=== PATIENT | female | born 1945 | race Caucasian/White ===

== ENCOUNTER → 2022-04-29 | Outpatient (CLI) | payer MEDICARE ==
[~2022-04-29] MED LIST: ACET650T61 PO; ATOR40TA75 PO; BIOT1CAP2 PO; CARV6.25 PO; ECOT81TA5 PO; FLUO40CA PO; FURO20TA2 PO; LEVO25TA5 PO; LISI2.5T9 PO; MM S100C PO; OCUV1CHW PO; SUPE5000 PO; VITA500T41 PO
== END ==
LOC: M LABSMTC 09:37
PROVIDERS: ATTEND Anesthesiology
DX: Z01.818 Encounter for other preprocedural examination (principal); Z11.52 Encounter for screening for COVID-19

== ENCOUNTER 2022-05-04 09:17 | Day surgery (SDC) | payer MEDICARE ==
[~2022-05-04] VITALS: Ht 157.5 cm; Wt 56.2 kg
[~2022-05-04 09:17] MED LIST changes: +CEFUROXIME 1MG/0.1ML INTRACAMERAL INJ As Ordered ONE; +DUOVISC (0.50ML VISCOAT/0.85ML PROVISC) OPHTH KIT As Ordered ONE; +LIDOCAINE 1% SDV 5ML VIAL As Ordered ONE; +MIDAZOLAM INJ 2MG/2ML VIAL (J2250 PER 1MG) As Ordered ONE; +POVIDONE-IODINE 5% OPHTH PREP SOL 30ML As Ordered ONE
[2022-05-04] MEDS: PHENYLEPHRINE 2.5% OPHTH SOL 2ML OD SCH ×3 (10:39→10:48)
[2022-05-04] MEDS: TROPICAMIDE 1% OPHTH SOLN 2ML OD SCH ×3 (10:39→10:48)
[2022-05-04] MEDS: CYCLOPENTOLATE 1% OPHTH SOLN 2 ML BTL OD SCH ×3 (10:39→10:48)
[2022-05-04 11:46] VITALS: BP 141/64
[2022-05-04] MEDS ORDERED: LIDOCAINE 3.5 % 1ML OPHTH TOPICAL GEL OU ONE (11:50)
[2022-05-04] MEDS ORDERED: OFLOXACIN 0.3 % (OCUFLOX) OPTH SOL 5ML OD ONE (11:50)
[2022-05-04] MEDS ORDERED: PHENYLEPHRINE HCL 10 % OPHTH. SOL 5ML OD PRN (11:50)
[2022-05-04] MEDS ORDERED: BSS IRRIG/VANCO(10MG)/TOBRA(5MG)/EPINEPH(1:1000-0.5CC)500ML BAG-ORONLY IR ONE (11:50)
== END 2022-05-04 12:03 | disposition home or self-care (01) ==
LOC: M SDC 09:17
PROVIDERS: ATTEND Ophthalmology
DX: H25.11 Age-related nuclear cataract, right eye (principal); I10 Essential (primary) hypertension; E03.9 Hypothyroidism, unspecified; M79.605 Pain in left leg; D64.9 Anemia, unspecified; Z95.810 Presence of automatic (implantable) cardiac defibrillator; Z98.61 Coronary angioplasty status; I25.10 Atherosclerotic heart disease of native coronary artery without angina pectoris; F41.9 Anxiety disorder, unspecified; F32.A Depression, unspecified; Z88.2 Allergy status to sulfonamides; Z88.5 Allergy status to narcotic agent; Z88.8 Allergy status to other drugs, medicaments and biological substances; Z85.41 Personal history of malignant neoplasm of cervix uteri; Z79.899 Other long term (current) drug therapy
CPT/HCPCS: 66984; J0697; J2250; V2632